=== PATIENT | male | born 1985 | race Caucasian/White ===

== ENCOUNTER 2017-09-17 11:30 | Emergency (ER) | payer OTHER ==
[~2017-09-17] VITALS: Ht 182.9 cm; Wt 74.8 kg
[~2017-09-17 11:30] MED LIST: ESCI5TAB PO; TRAZ-144 PO
[2017-09-17] MEDS ORDERED: AZITHROMYCIN 250 MG TABLET PO ONE (13:05)
[2017-09-17] MEDS ORDERED: predniSONE 20 MG TABLET PO ONE (13:06)
[2017-09-17] MEDS ORDERED: predniSONE 20 MG TABLET ONE (13:17)
[2017-09-17] MEDS ORDERED: AZITHROMYCIN 250 MG TABLET ONE (13:17)
--- NOTE | 2017-09-17 13:18 | NUR ---
Patient discharged to home in stable conditon. Written and verbal after care instructions given. Patient verbalizes understanding of instructions.pt waks in steady gait. no resp distress.
[2017-09-17 13:19] VITALS: BP 129/77
== END 2017-09-17 13:34 | disposition home or self-care (01) ==
LOC: ER 11:31
DX: J20.9 Acute bronchitis, unspecified (principal); F43.10 Post-traumatic stress disorder, unspecified; F17.200 Nicotine dependence, unspecified, uncomplicated
CPT/HCPCS: 71045; 93005; 99284; A4663; J7512; Q0144

== ENCOUNTER 2021-11-02 11:30 | Emergency (ER) | payer SELFPAY ==
[~2021-11-02] VITALS: Ht 180.3 cm; Wt 77.1 kg
[~2021-11-02 11:30] MED LIST changes: -TRAZ-144 PO; +TRAZ-182 PO
--- NOTE | 2021-11-02 11:40 | NUR ---
PATIENT WAS MSE BY DR SALAZAR IN ROOM 04B.
[2021-11-02] MEDS ORDERED: KETOROLAC TROMETHAMINE 30 MG INJ IM ONE (11:45)
[2021-11-02] MEDS ORDERED: HYDROCODONE/APAP 10-325 MG TABLET PO ONE (11:45)
[2021-11-02] MEDS ORDERED: CYCL10TA9 PO (11:57)
[2021-11-02] MEDS ORDERED: KETOROLAC TROMETHAMINE 30 MG INJ ONE (11:57)
[2021-11-02] MEDS ORDERED: NAPR-1164 PO (11:57)
[2021-11-02] MEDS ORDERED: HYDROCODONE/APAP 10-325 MG TABLET ONE (11:58)
--- NOTE | 2021-11-02 12:13 | NUR ---
Patient discharged to home in stable condition. Written and verbal after care instructions given. Patient verbalizes understanding of instructions. Stressed follow up or return to ER for worsening s/s.Slow steady gait.
[2021-11-02 12:15] VITALS: BP 119/55
== END 2021-11-02 12:16 | disposition home or self-care (01) ==
LOC: ER 11:30
DX: S33.5XXA Sprain of ligaments of lumbar spine, initial encounter (principal); S40.012A Contusion of left shoulder, initial encounter; W18.39XA Other fall on same level, initial encounter; Y92.89 Other specified places as the place of occurrence of the external cause; Y99.8 Other external cause status; F17.210 Nicotine dependence, cigarettes, uncomplicated; Z80.0 Family history of malignant neoplasm of digestive organs; Z82.49 Family history of ischemic heart disease and other diseases of the circulatory system; F43.10 Post-traumatic stress disorder, unspecified; Z79.899 Other long term (current) drug therapy
CPT/HCPCS: 96372; 99283; J1885; A4663

== ENCOUNTER 2023-09-02 11:57 | Emergency (ER) | payer MEDICAID, OTHER ==
[~2023-09-02] VITALS: Ht 180.3 cm; Wt 77.1 kg
[~2023-09-02 11:57] MED LIST changes: +CYCL10TA9 PO; +NAPR-1164 PO
[2023-09-02] MEDS ORDERED: ONDANSETRON 4 MG/2 ML VIAL ONE (13:18)
[2023-09-02] MEDS ORDERED: KETOROLAC TROMETHAMINE 60 MG INJ IM ONE (13:18)
[2023-09-02] MEDS ORDERED: HYDROMORPHONE 1 MG/1 ML DISP.SYRIN ONE (13:18)
[2023-09-02] MEDS ORDERED: HYDROMORPHONE 2 MG/1 ML DISP.SYRIN ONE (13:19)
[2023-09-02] MEDS ORDERED: ONDANSETRON ODT 4 MG TAB.RAPDIS ONE (13:27)
[2023-09-02] MEDS: HYDROMORPHONE 1 MG/1 ML DISP.SYRIN IM ONE (13:28)
[2023-09-02] MEDS: KETOROLAC TROMETHAMINE 60 MG INJ IM ONE (13:29)
[2023-09-02] MEDS: ONDANSETRON HCL 4 MG TABLET PO ONE (13:29)
[2023-09-02] MEDS ORDERED: HYDR-3980 PO (14:25)
[2023-09-02 14:51] VITALS: BP 102/66; O2SAT 99
== END 2023-09-02 14:52 | disposition home or self-care (01) ==
LOC: ER 11:57
DX: M54.6 Pain in thoracic spine (principal); G43.909 Migraine, unspecified, not intractable, without status migrainosus; F17.200 Nicotine dependence, unspecified, uncomplicated; Z79.899 Other long term (current) drug therapy
CPT/HCPCS: 99284; 72072; 96372 ×2; J1885; J1170 ×2; A4606; A4663; J2405; Q0162

== ENCOUNTER 2024-02-15 13:18 | Emergency (ER) | payer OTHER ==
[~2024-02-15] VITALS: Ht 172.7 cm; Wt 73.0 kg
[~2024-02-15 13:18] MED LIST changes: +HYDR-3980 PO
[2024-02-15] MEDS ORDERED: DEXAMETHASONE SOD PHOSPHATE 4 MG INJ ONE (13:47)
[2024-02-15] MEDS ORDERED: KETOROLAC TROMETHAMINE 60 MG INJ IM ONE (13:48)
[2024-02-15] MEDS: DEXAMETHASONE SOD PHOSPHATE 4 MG INJ IM ONE (13:51)
[2024-02-15] MEDS: KETOROLAC TROMETHAMINE 60 MG INJ IM ONE (13:52)
[2024-02-15] MEDS ORDERED: ACET1TAB23 PO (14:26)
[2024-02-15] MEDS ORDERED: NAPR-1164 PO (14:26)
[2024-02-15] MEDS ORDERED: ONDA4TAB5 PO (14:36)
[2024-02-15 14:38] VITALS: BP 112/72; TEMP 98; O2SAT 99
== END 2024-02-15 14:39 | disposition home or self-care (01) ==
LOC: ER 13:20
DX: S46.811A Strain of other muscles, fascia and tendons at shoulder and upper arm level, right arm, initial encounter (principal); M79.601 Pain in right arm; F17.200 Nicotine dependence, unspecified, uncomplicated; G43.909 Migraine, unspecified, not intractable, without status migrainosus; Z79.899 Other long term (current) drug therapy; Z88.7 Allergy status to serum and vaccine; X58.XXXA Exposure to other specified factors, initial encounter; Y93.89 Activity, other specified; Y92.89 Other specified places as the place of occurrence of the external cause; Y99.8 Other external cause status
CPT/HCPCS: 29105; 73020; 96372; 99284; J1100; J1885; A4606; A4663

== ENCOUNTER 2025-02-16 17:18 | Emergency (ER) | payer OTHER ==
[~2025-02-16] VITALS: Ht 172.7 cm; Wt 70.3 kg
[~2025-02-16 17:18] MED LIST changes: +ACET1TAB23 PO; +ONDA4TAB5 PO
[2025-02-16] MEDS ORDERED: ONDANSETRON ODT 4 MG TAB.RAPDIS ONE (18:45)
[2025-02-16] MEDS ORDERED: HYDROMORPHONE 2 MG/1 ML DISP.SYRIN ONE (18:45)
[2025-02-16] MEDS: ONDANSETRON ODT 4 MG TAB.RAPDIS SL ONE (18:48)
[2025-02-16] MEDS: HYDROMORPHONE 1 MG/1 ML DISP.SYRIN IM ONE (18:48)
[2025-02-16] MEDS ORDERED: HYDR-3980 PO (19:20)
[2025-02-16] MEDS ORDERED: ONDA4TAB11 PO (19:20)
[2025-02-16] MEDS ORDERED: CYCL10TA9 PO (19:30)
[2025-02-16 19:37] VITALS: BP 128/76
[2025-02-16 19:38] VITALS: BP 128/76; O2SAT 98
== END 2025-02-16 19:38 | disposition home or self-care (01) ==
LOC: ER 17:26
DX: M54.6 Pain in thoracic spine (principal); F17.200 Nicotine dependence, unspecified, uncomplicated; G89.29 Other chronic pain; Z79.899 Other long term (current) drug therapy; Z88.7 Allergy status to serum and vaccine; Z95.1 Presence of aortocoronary bypass graft
CPT/HCPCS: 99284; 72072; 72100; 96372; J1171; A4606; A4663; Q0162